=== PATIENT | female | born 1980 | race Caucasian/White ===

== ENCOUNTER → 2018-10-01 | Outpatient (CLI) | payer MEDICARE ==
[~2018-10-01] MED LIST: HYDR-653 PO; METHOTREXATE SOD 50 MG/2 ML IM ONE; NAPR500T75 PO; ONDA4TAB9 PO; PROM-110 PO
[2018-10-01 14:33] VITALS: BP 105/56
== END ==
LOC: SPU 11:18
PROVIDERS: ATTEND Obstetrics & Gynecology
DX: O00.90 Unspecified ectopic pregnancy without intrauterine pregnancy (principal)
CPT/HCPCS: 96372; J9260

== ENCOUNTER 2018-11-07 08:27 | Emergency (ER) | payer MEDICARE, OTHER ==
[~2018-11-07 08:27] MED LIST changes: +AMOX-559 PO; +BUPR-474 PO; +FLUO40CA76 PO; +GUAI100G4 PO; +LEVO75TA73 PO; -METHOTREXATE SOD 50 MG/2 ML IM ONE; +TRAZ50TA34 PO
--- NOTE | 2018-11-07 08:31 | ER Report ---
History and Physical Time Seen By MD: 08:30 HPI/ROS CHIEF COMPLAINT: Vomiting HISTORY OF PRESENT ILLNESS: Patient is a 38-year-old female who complains of epigastric abdominal pain with radiation to the right side along with nausea and vomiting. No fevers or chills. Patient was recently treated for ectopic with methotrexate in September 2018. Patient has not had her menstrual cycle yet. Patient denies any pelvic or lower abdominal pain she denies any vaginal bleeding or vaginal discharge. She denies any dysuria. Reports her last bowel movement was this morning and normal. She denies any other ill contacts at home. REVIEW OF SYSTEMS: Constitutional: No fever, no chills. Eyes: No discharge. ENT: No sore throat. Cardiovascular: No chest pain, no palpitations. Respiratory: No cough, no shortness of breath. Gastrointestinal: Epigastric abdominal pain, nausea, vomiting Genitourinary: No hematuria. Musculoskeletal: No back pain. Skin: No rashes. Neurological: No headache. Allergies: Coded Allergies: No Known Drug Allergies (Unverified , 11/07/18) Home Meds Reported Medications Levothyroxine Sodium (LEVOTHYROXINE SODIUM) 75 Mcg Tablet, 75 MCG PO QDAY, TAB 10/11/18 Trazodone Hcl (TRAZODONE HCL) 50 Mg Tablet, 50 MG PO QHS 10/11/18 Bupropion Hcl (WELLBUTRIN XL) 300 Mg Tab.er.24h, 300 MG PO QDAY, TAB 10/11/18 Fluoxetine Hcl (PROZAC) 40 Mg Capsule, 40 MG PO QDAY, CAPSULE 10/11/18 Discontinued Reported Medications Guaifenesin (MUCINEX) 100 Mg Gran.pack, 100 MG PO 10/11/18 Discontinued Scripts Amoxicillin/Pot Clav 875-125 Mg Tab (AUGMENTIN 875-125 TABLET) 1 Each Tablet, 1 TAB PO Q12H for 7 Days, #14 TAB 0 Refills Prov:YAJAIRA ISAAC DO 10/11/18 Past Medical/Surgical History Treated for ectopic in September 2018 Smoking Status: Current: Every Day Smoker Constitutional Vital Sign - Last 24 Hours 11/07/18 11/07/18 11/07/18 11/07/18 08:34 08:34 09:00 09:30 Temp 98.0 Pulse 62 64 56 Resp 16 B/P (MAP) 121/80 (94) 121/80 114/75 (88) 113/68 (83) Pulse Ox 94 98 92 O2 Delivery Room Air 11/07/18 11/07/18 10:00 10:30 Pulse 57 64 B/P (MAP) 112/67 (82) 102/60 (74) Pulse Ox 96 95 Physical Exam General Appearance: The patient is alert, has no immediate need for airway protection and no signs of toxicity. Eyes: Pupils equal and round no pallor or injection. ENT, Mouth: Mucous membranes are moist. Respiratory: There are no retractions, lungs are clear to auscultation. Cardiovascular: Regular rate and rhythm. Gastrointestinal: Abdomen is noted for tenderness to palpation in the epigastric region Neurological: Awake and alert Skin: Warm and dry, no rashes. Musculoskeletal: Neck is supple non tender. Extremities are nontender, nonswollen and have full range of motion. Medical Decision Making Data Points Result Diagram: 11/07/18 0840 11/07/18 0840 Laboratory Hematology Test 11/07/18 00:00 11/07/18 08:39 11/07/18 08:40 Urine HCG, Qualitative Negative (NEGATIVE) Urine Color Yellow Urine Clarity Cloudy Urine pH 8.0 pH (4.8-9.5) Urine Specific Bryan 1.015 Urine Protein Negative mg/dL (NEGATIVE) Urine Glucose (UA) Negative mg/dL (NEGATIVE) Urine Ketones Negative mg/dL (NEGATIVE) Urine Blood Negative (NEGATIVE) Urine Nitrite Negative (NEGATIVE) Urine Bilirubin Negative (NEGATIVE) Urine Urobilinogen Negative mg/dL (0.2-1.9) Urine Leukocyte Esterase Negative (NEGATIVE) Urine RBC None /HPF (0-2/HPF) Urine WBC 1 /HPF (0-5/HPF) Urine Squamous Epithelial Cells Many /LPF (</=FEW) Urine Amorphous Crystals Few /HPF Urine Bacteria Few /HPF (NONE-FEW) Urine Mucus None /HPF (NONE-FEW) Red Blood Count 4.07 M/uL (4.17-5.56) Mean Corpuscular Volume 97.4 fL (80.0-96.0) Mean Corpuscular Hemoglobin 33.4 pg (26.0-33.0) Mean Corpuscular Hemoglobin Concent 34.3 g/dL (32.0-36.0) Red Cell Distribution Width 12.8 % (11.5-14.5) Mean Platelet Volume 7.4 fL (7.2-11.1) Neutrophils (%) (Auto) 47.2 % (39.4-72.5) Lymphocytes (%) (Auto) 37.1 % (17.6-49.6) Monocytes (%) (Auto) 9.7 % (4.1-12.4) Eosinophils (%) (Auto) 3.6 % (0.4-6.7) Basophils (%) (Auto) 2.4 % (0.3-1.4) Nucleated RBC Relative Count (auto) 0.0 /100WBC Neutrophils # (Auto) 2.5 K/uL (2.0-7.4) Lymphocytes # (Auto) 1.9 K/uL (1.3-3.6) Monocytes # (Auto) 0.5 K/uL (0.3-1.0) Eosinophils # (Auto) 0.2 K/uL (0.0-0.5) Basophils # (Auto) 0.1 K/uL (0.0-0.1) Nucleated RBC Absolute Count (auto) 0.00 K/uL Sodium Level 140 mmol/L (137-145) Potassium Level 4.0 mmol/L (3.5-5.0) Chloride Level 110 mmol/L (98-107) Carbon Dioxide Level 21 mmol/L (22-31) Blood Urea Nitrogen 12 mg/dl (7-18) Creatinine 0.90 mg/dl (0.52-1.04) Glomerular Filtration Rate Calc > 60.0 Random Glucose 100 mg/dl (75-110) Calcium Level 9.3 mg/dl (8.4-10.2) Total Bilirubin 0.4 mg/dl (0.2-1.3) Aspartate Amino Transf (AST/SGOT) 28 U/L (0-35) Alanine Aminotransferase (ALT/SGPT) 16 U/L (0-56) Alkaline Phosphatase 53 U/L (0-126) Total Protein 7.2 g/dl (6.3-8.2) Albumin 4.2 g/dl (3.5-5.0) Lipase 231 U/L (23-300) Helicobacter pylori IgG Antibody Negative (NEGATIVE) Chemistry Test 11/07/18 00:00 11/07/18 08:39 11/07/18 08:40 Urine HCG, Qualitative Negative (NEGATIVE) Urine Color Yellow Urine Clarity Cloudy Urine pH 8.0 pH (4.8-9.5) Urine Specific Bryan 1.015 Urine Protein Negative mg/dL (NEGATIVE) Urine Glucose (UA) Negative mg/dL (NEGATIVE) Urine Ketones Negative mg/dL (NEGATIVE) Urine Blood Negative (NEGATIVE) Urine Nitrite Negative (NEGATIVE) Urine Bilirubin Negative (NEGATIVE) Urine Urobilinogen Negative mg/dL (0.2-1.9) Urine Leukocyte Esterase Negative (NEGATIVE) Urine RBC None /HPF (0-2/HPF) Urine WBC 1 /HPF (0-5/HPF) Urine Squamous Epithelial Cells Many /LPF (</=FEW) Urine Amorphous Crystals Few /HPF Urine Bacteria Few /HPF (NONE-FEW) Urine Mucus None /HPF (NONE-FEW) White Blood Count 5.2 k/uL (4.5-11.0) Red Blood Count 4.07 M/uL (4.17-5.56) Hemoglobin 13.6 g/dL (12.0-16.0) Hematocrit 39.6 % (34.0-47.0) Mean Corpuscular Volume 97.4 fL (80.0-96.0) Mean Corpuscular Hemoglobin 33.4 pg (26.0-33.0) Mean Corpuscular Hemoglobin Concent 34.3 g/dL (32.0-36.0) Red Cell Distribution Width 12.8 % (11.5-14.5) Platelet Count 265 K/uL (150-450) Mean Platelet Volume 7.4 fL (7.2-11.1) Neutrophils (%) (Auto) 47.2 % (39.4-72.5) Lymphocytes (%) (Auto) 37.1 % (17.6-49.6) Monocytes (%) (Auto) 9.7 % (4.1-12.4) Eosinophils (%) (Auto) 3.6 % (0.4-6.7) Basophils (%) (Auto) 2.4 % (0.3-1.4) Nucleated RBC Relative Count (auto) 0.0 /100WBC Neutrophils # (Auto) 2.5 K/uL (2.0-7.4) Lymphocytes # (Auto) 1.9 K/uL (1.3-3.6) Monocytes # (Auto) 0.5 K/uL (0.3-1.0) Eosinophils # (Auto) 0.2 K/uL (0.0-0.5) Basophils # (Auto) 0.1 K/uL (0.0-0.1) Nucleated RBC Absolute Count (auto) 0.00 K/uL Glomerular Filtration Rate Calc > 60.0 Calcium Level 9.3 mg/dl (8.4-10.2) Total Bilirubin 0.4 mg/dl (0.2-1.3) Aspartate Amino Transf (AST/SGOT) 28 U/L (0-35) Alanine Aminotransferase (ALT/SGPT) 16 U/L (0-56) Alkaline Phosphatase 53 U/L (0-126) Total Protein 7.2 g/dl (6.3-8.2) Albumin 4.2 g/dl (3.5-5.0) Lipase 231 U/L (23-300) Helicobacter pylori IgG Antibody Negative (NEGATIVE) Urinalysis Test 11/07/18 00:00 11/07/18 08:39 Urine HCG, Qualitative Negative (NEGATIVE) Urine Color Yellow Urine Clarity Cloudy Urine pH 8.0 pH (4.8-9.5) Urine Specific Bryan 1.015 Urine Protein Negative mg/dL (NEGATIVE) Urine Glucose (UA) Negative mg/dL (NEGATIVE) Urine Ketones Negative mg/dL (NEGATIVE) Urine Blood Negative (NEGATIVE) Urine Nitrite Negative (NEGATIVE) Urine Bilirubin Negative (NEGATIVE) Urine Urobilinogen Negative mg/dL (0.2-1.9) Urine Leukocyte Esterase Negative (NEGATIVE) Urine RBC None /HPF (0-2/HPF) Urine WBC 1 /HPF (0-5/HPF) Urine Squamous Epithelial Cells Many /LPF (</=FEW) Urine Amorphous Crystals Few /HPF Urine Bacteria Few /HPF (NONE-FEW) Urine Mucus None /HPF (NONE-FEW) EKG/Imaging Imaging Normal upper quadrant ultrasound ED Course/Re-evaluation ED Course 11/07/2018 8:54:29 am patient with epigastric and right upper quadrant pain differential diagnosis includes is not limited to gastritis, H. pylori gastritis, pancreatitis, or biliary colic and cholelithiasis. At this time will be abdominal workup including lipase, CMP, white count, right upper quadrant ultrasound. Decision to Disposition Date: Nov 07, 2018 Decision to Disposition Time: 10:56 Depart Departure Latest Vital Signs Vital Signs Date Time Temp Pulse Resp B/P (MAP) Pulse Ox O2 Delivery O2 Flow Rate FiO2 11/07/18 10:30 64 102/60 (74) 95 11/07/18 08:34 98.0 16 Room Air Impression: Primary Impression: Biliary colic Condition: Improved Disposition: HOME OR SELF-CARE Referrals: YAJAIRA ISAAC DO (PCP) DEVIKA KIRBY Schedule a follow up appointment if your abdominal pain persists or reoccurs New Scripts Ondansetron Hcl (ZOFRAN) 4 Mg Tablet 4 MG PO Q8H for Nausea, #15 TAB 0 Refills Prov: TERE JULIAN MD 11/07/18 Dicyclomine Hcl (DICYCLOMINE HCL) 20 Mg Tablet 20 MG PO QID for abdominal pain, #30 TAB 0 Refills Prov: TERE JULIAN MD 11/07/18 Patient Instructions: Biliary Colic (GEN) TERE JULIAN MD Nov 07, 2018 08:31
[2018-11-07] MEDS ORDERED: NS(*) 0.9% 1000 ML BAG 1,000 ML IV ONE (08:38)
[2018-11-07] MEDS ORDERED: ONDANSETRON 4 MG/2 ML VIAL IVP ONE (08:40)
[2018-11-07 09:02] LABS: PLATELET COUNT, AUTOMATED 265 K/uL (150-450)
[2018-11-07] MEDS ORDERED: KETOROLAC 15 MG/ML VIAL IVP ONE (09:05)
[2018-11-07 10:30] VITALS: BP 102/60
--- NOTE | 2018-11-07 10:55 | RADIOLOGY IMAGING REPORT ---
FACILITY: [facility] [place] PATIENT NAME: Louise Orozco : 1980 MR: [id number] V: [id number] EXAM DATE: ORDERING PHYSICIAN: TERE JULIAN TECHNOLOGIST: Location: [facility] [place] Patient: Louise Orozco : 1980 Visit/Account:[id number] Date of Sevice: 11/07/2018 GALLBLADDER EXAMINATION: Limited right upper quadrant ultrasound Additional Pertinent history: none COMPARISON STUDIES: None FINDINGS: Liver: Normal. Gallbladder: Normal wall thickness, no evidence of gallstone. Common duct: normal 6.1 mm. Pancreas: Visualized portions are normal. Right kidney: Normal. No hydronephrosis or mass. Proximal IVC/Aorta: negative IMPRESSION: Normal right upper quadrant ultrasound. Report Dictated By: Rios Ramirez at 11/07/2018 10:48 AM Report E-Signed By: Rios Ramirez at 11/07/2018 10:50 AM WSN:[id number]
[2018-11-07] MEDS ORDERED: ONDA4TAB97 PO (10:59)
[2018-11-07] MEDS ORDERED: DICY20TA70 PO (10:59)
[2018-11-07] MEDS ORDERED: LOR5/325 PO (11:00)
== END 2018-11-07 11:07 | disposition home or self-care (01) ==
LOC: ER 08:50
DX: K80.50 Calculus of bile duct without cholangitis or cholecystitis without obstruction (principal)
CPT/HCPCS: 76705; 81001; 81025; 83690; 85025; 86677; 96361; 96374; 96375; 99284; J1885; J2405; J7030; 82040; 82247; 82310; 82374; 82435; 82565; 82947; 84075; 84132; 84155; 84295; 84450; 84460; 84520